=== PATIENT | male | born 1970 | race Caucasian/White ===

== ENCOUNTER 2017-06-10 03:50 | Emergency (ER) | payer OTHER ==
[~2017-06-10] VITALS: Ht 195.6 cm; Wt 122.7 kg
[2017-06-10 03:50] VITALS: BP 140/86; RESP 20; O2SAT 94
[2017-06-10 03:51] VITALS: O2SAT 94
[2017-06-10] MEDS ORDERED: ceFAZolin 2 GM PREMIX 50 ML IV ONE (04:00)
[2017-06-10] MEDS ORDERED: TETANUS/DIPHTHERIA TOXOID ADULT 0.5 ML VIAL IM ONE (04:00)
[2017-06-10 04:07] LABS: AUTOMATED NEUTROPHIL # 4.7 TH/MM3 (1.8-7.7); BASOPHIL % 0.5 % (0.0-2.0); EOSINOPHIL # 0.1 TH/MM3 (0-0.4); EOSINOPHIL % 1.3 % (0.0-4.0); HEMO FLAGS DIFF FINAL; LYMPHOCYTE # 2.4 TH/MM3 (1.0-4.8); MEAN CELL VOLUME 96.5 FL (80.0-100.0); MEAN CORPUSCULAR HEMOGLOBIN 34.2 PG (27.0-34.0); MEAN CORPUSCULAR HGB CONC 35.5 % (32.0-36.0); MONO % 10.2 % (0.0-8.0); PLATELET COUNT 200 TH/MM3 (150-450); RED BLOOD COUNT 4.56 MIL/MM3 (4.50-5.90); RED CELL DISTRIBUTION WIDTH 13.7 % (11.6-17.2)
[2017-06-10 04:09] LABS: I-STAT POTASSIUM 3.7 MMOL/L (3.5-4.9); I-STAT SODIUM 142 MMOL/L (138-146)
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
[2017-06-10 04:17] LABS: APTT (PATIENT) 24.3 SEC (24.3-30.1); PROTHROMBIN TIME - PATIENT 10.7 SEC (9.8-11.6)
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
[2017-06-10 04:32] LABS: ALKALINE PHOSPHATASE 101 U/L (45-117); TOTAL BILIRUBIN ADULT 0.5 MG/DL (0.2-1.0)
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
[2017-06-10 04:39] LABS: ALCOHOL 245 MG/DL (0-5); ALT (GPT) 57 U/L (12-78); ANION GAP 14 MEQ/L (5-15); AST (GOT) 56 U/L (15-37); BICARBONATE 19.4 MEQ/L (21.0-32.0); BLOOD UREA NITROGEN 15 MG/DL (7-18); CHLORIDE 109 MEQ/L (98-107); GLOMERULAR FILTRATION RATE 57 ML/MIN (>89); POTASSIUM 3.7 MEQ/L (3.5-5.1); SODIUM (NA) 142 MEQ/L (136-145)
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
[2017-06-10 05:33] VITALS: BP 117/65; PULSE 103; RESP 20; O2SAT 95
[2017-06-10] MEDS ORDERED: SODIUM CHLOR 0.9% 1000 ML INJ 1,000 ML IV ONE (05:45)
[2017-06-10 06:09] VITALS: BP 106/57; PULSE 103; RESP 20; O2SAT 98
[2017-06-10 10:36] VITALS: BP 122/71; PULSE 68; RESP 15; O2SAT 99
[2017-06-10 11:57] VITALS: BP 120/72
== END 2017-06-10 12:10 | disposition home or self-care (01) ==
LOC: NEPE 03:50
DX: S00.83XA Contusion of other part of head, initial encounter (principal); R40.2411 Glasgow coma scale score 13-15, in the field [EMT or ambulance]; F17.210 Nicotine dependence, cigarettes, uncomplicated; F10.129 Alcohol abuse with intoxication, unspecified; Y90.8 Blood alcohol level of 240 mg/100 ml or more; Y08.02XA Assault by strike by baseball bat, initial encounter; Z23 Encounter for immunization
CPT/HCPCS: 70450; 70486; 71010; 72125; 72128; 72131; 80053; 80307; 82435; 82565; 82947; 84132; 84295; 84520; 85025; 85610; 85730; 90471; 90714; 96374; 99285; 99291; J0690; J7030; G0390

== ENCOUNTER 2017-07-03 17:35 | Emergency (ER) | payer SELFPAY ==
[~2017-07-03] VITALS: Ht 193 cm; Wt 115.0 kg
[2017-07-03 17:36] VITALS: BP 162/95; PULSE 96; RESP 16; TEMP 97.9; O2SAT 99
[2017-07-03] MEDS ORDERED: SODIUM CHLORIDE 0.9% FLUSH 10 ML FLUSH IVF PRN (18:00)
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
[2017-07-03 18:08] VITALS: BP_SYST 122; BP_SYST 127; BP_SYST 141; BP_DIAS 82; BP_DIAS 86; RESP 17; O2SAT 97
[2017-07-03] MEDS ORDERED: MECLIZINE HCL 25 MG TAB PO ONE (18:30)
[2017-07-03 18:39] LABS: AUTOMATED NEUTROPHIL # 6.1 TH/MM3 (1.8-7.7); BASOPHIL % 0.2 % (0.0-2.0); EOSINOPHIL # 0.2 TH/MM3 (0-0.4); EOSINOPHIL % 2.2 % (0.0-4.0); HEMATOCRIT 45.4 % (39.0-51.0); HEMO FLAGS DIFF FINAL; LYMPH % 22.9 % (9.0-44.0); LYMPHOCYTE # 2.1 TH/MM3 (1.0-4.8); MEAN CELL VOLUME 95.8 FL (80.0-100.0); MEAN CORPUSCULAR HEMOGLOBIN 33.7 PG (27.0-34.0); MEAN CORPUSCULAR HGB CONC 35.2 % (32.0-36.0); NEUT % 66.7 % (16.0-70.0); PLATELET COUNT 186 TH/MM3 (150-450); RED BLOOD COUNT 4.74 MIL/MM3 (4.50-5.90); RED CELL DISTRIBUTION WIDTH 13.6 % (11.6-17.2); WHITE BLOOD COUNT 9.2 TH/MM3 (4.0-11.0)
[2017-07-03 19:10] VITALS: BP 109/78; PULSE 91
[2017-07-03 19:11] LABS: POTASSIUM 3.9 MEQ/L (3.5-5.1)
[2017-07-03 19:42] LABS: BLOOD, URINE MOD (NEG); COMMENT (UR) CULT NOT INDICATED; CULTURE IF INDICATED CULT NOT INDICATED; GLUCOSE,URINE NEG (NEG); KETONE, URINE NEG (NEG); MUCUS URINE FEW /lpf (OCC); NITRITE,URINE NEG (NEG); PH, URINE 5.5 (5.0-8.5); URINE COLOR YELLOW (YELLW/STRAW)
[2017-07-03] MEDS ORDERED: IOHEXOL 350 MG/ML 10 ML VIAL (for RAD DIAG) IVCONTRAST ONE (19:46)
--- NOTE | 2017-07-03 19:51 | RADRPT ---
EXAM DATE/TIME: 07/03/2017 19:24 [facility] COMPARISON: CT BRAIN W/O CONTRAST, June 10, 2017, 4:18. INDICATIONS : Dizziness. RADIATION DOSE: 69.15 CTDIvol (mGy) ; Tabletop CT Head MEDICAL HISTORY : None SURGICAL HISTORY : Hernia repair. ENCOUNTER: Initial ACUITY: 1 day PAIN SCALE: 0/10 LOCATION: cranial TECHNIQUE: Multiple contiguous axial images were obtained of the head. Using automated exposure control and adj ustment of the mA and/or kV according to patient size, radiation dose was kept as low as reasonably a chievable to obtain optimal diagnostic quality images. DICOM format image data is available electro nically for review and comparison. FINDINGS: CEREBRUM: The ventricles are normal. No evidence of midline shift, mass lesion, hemorrhage or acute infarction . No extra-axial fluid collections are seen. POSTERIOR FOSSA: The cerebellum and brainstem are intact. The 4th ventricle is midline. The cerebellopontine angle i s unremarkable. EXTRACRANIAL: The visualized portion of the orbits is intact. SKULL: The calvaria is intact. No evidence of skull fracture. CONCLUSION: No acute intracranial abnormality is identified. Conner Spann MD on July 03, 2017 at 19:48 Board Certified Radiologist. This report was verified electronically.
--- NOTE | 2017-07-03 20:05 | RADRPT ---
EXAM DATE/TIME: 07/03/2017 19:29 [facility] COMPARISON: CT LUMBAR SPINE W/O CONTRAST, June 10, 2017, 4:32. INDICATIONS : Lower back pain. RADIATION DOSE: ; Reconstructed from previous dataset, no dose MEDICAL HISTORY : None SURGICAL HISTORY : Hernia repair. ENCOUNTER: Initial ACUITY: 1 day PAIN SCALE: 6/10 LOCATION: lumbar TECHNIQUE: Volumetric scanning of the lumbar spine was performed. Multiplanar reconstructions in the sagittal, coronal and oblique axial planes were performed. Using automated exposure control and adjustment of the mA and/or kV according to patient size, radiation dose was kept as low as reasonably achievable t o obtain optimal diagnostic quality images. DICOM format image data is available electronically for review and comparison. FINDINGS: VERTEBRAE: Normal vertebral body height. No fracture or compression deformity. ALIGNMENT: No anterolisthesis or retrolisthesis. T12-L1: No disc herniation, canal stenosis, or neural foraminal stenosis. L1-L2: There is a mild diffuse disc bulge. No canal stenosis or neural foraminal narrowing is appreciated. L2-L3: There is a mild diffuse disc bulge with facet and ligamentum flavum hypertrophy. Canal may be mildly narrowed but there is no significant neural foraminal stenosis. L3-L4: There is a mild diffuse disc bulge with mild facet hypertrophy. No definite canal stenosis is present . There is mild neural foraminal narrowing bilaterally. L4-L5: Decreased disc height with a diffuse disc bulge. There is mild facet hypertrophy. Canal may be mildly narrowed. There is mild bilateral neural foraminal stenosis. L5-S1: No disc herniation is present. There is mild facet hypertrophy. No significant canal or neural forami nal narrowing is appreciated. CONCLUSION: Mild degenerative changes of the lumbar spine, as above, without significant change from the prior st udy. No acute lumbar spine abnormality is identified. Conner Spann MD on July 03, 2017 at 20:00 Board Certified Radiologist. This report was verified electronically.
--- NOTE | 2017-07-03 20:09 | RADRPT ---
EXAM DATE/TIME: 07/03/2017 19:29 [facility] COMPARISON: No previous studies available for comparison. INDICATIONS : Diffuse abdominal pain. IV CONTRAST: 100 cc Omnipaque 350 (iohexol) IV ORAL CONTRAST: No oral contrast ingested. RADIATION DOSE: 10.16 CTDIvol (mGy) MEDICAL HISTORY : None SURGICAL HISTORY : Hernia repair. ENCOUNTER: Initial ACUITY: 3 weeks PAIN SCALE: 5/10 LOCATION: Bilateral abdomen TECHNIQUE: Volumetric scanning of the abdomen and pelvis was performed. Using automated exposure control and ad justment of the mA and/or kV according to patient size, radiation dose was kept as low as reasonably achievable to obtain optimal diagnostic quality images. DICOM format image data is available electro nically for review and comparison. FINDINGS: LOWER LUNGS: The visualized lower lungs are clear. There is respiratory motion artifact. LIVER: Homogeneous density without lesion. There is no dilation of the biliary tree. No calcified gallston es. SPLEEN: Normal size without lesion. PANCREAS: Within normal limits. KIDNEYS: Normal in size and shape. There is no mass, stone or hydronephrosis. ADRENAL GLANDS: Within normal limits. VASCULAR: There is no aortic aneurysm. BOWEL/MESENTERY: The stomach, small bowel, and colon demonstrate no acute abnormality. There is no free intraperitone al air or fluid. Appendix is normal. ABDOMINAL WALL: There is a small fat containing umbilical hernia. RETROPERITONEUM: There is no lymphadenopathy. BLADDER: No wall thickening or mass. There is a 4 x 3 mm stone adjacent to the left ureterovesical junction in the posterior inner bladder. REPRODUCTIVE: Within normal limits. INGUINAL: There is no lymphadenopathy or hernia. MUSCULOSKELETAL: There are mild degenerative changes of the lumbar spine. Partial fusion of the right sacroiliac joint is present. CONCLUSION: 1. There is a 4 x 3 mm stone in the left urinary bladder near the ureterovesical junction. This may r epresent a recently passed stone. There is no hydronephrosis. 2. Otherwise, no acute finding is identified within the abdomen or pelvis. Conner Spann MD on July 03, 2017 at 20:03 Board Certified Radiologist. This report was verified electronically.
[2017-07-03] MEDS ORDERED: MECL-62 PO (20:18)
--- NOTE | 2017-07-04 13:00 | EKG ---
Date Performed: 07/03/2017 Time Performed: 18:23:27 PTAGE: 46 years EKG: Sinus rhythm NORMAL ECG PREVIOUS TRACING : 02/14/2015 07.43 Since previous tracing, no significant change. DOCTOR: Shayne Orellana Interpretating Date/Time 07/04/2017 12:57:54
== END 2017-07-03 20:31 | disposition home or self-care (01) ==
LOC: NEPD 17:35
DX: R42 Dizziness and giddiness (principal); H61.22 Impacted cerumen, left ear; N20.0 Calculus of kidney; M51.36 Other intervertebral disc degeneration, lumbar region; R55 Syncope and collapse; F17.210 Nicotine dependence, cigarettes, uncomplicated; Z79.899 Other long term (current) drug therapy; Y09 Assault by unspecified means
CPT/HCPCS: 70450; 72131; 74177; 80048; 81001; 85025; 93005; 99285; Q9967